=== PATIENT | female | born 1960 | race African-American/Black ===

== ENCOUNTER 2021-02-04 17:04 | Emergency (ER) | payer OTHER ==
[2021-02-04 17:22] VITALS: BMI 32.1
[2021-02-04] MEDS ORDERED: CASIRIVIMAB (REGN10933) 600 MG, IMDEVIMAB (REGN10987) 600 MG in SODIUM CHLORIDE 100 ML IVPB ONE (17:40)
[2021-02-04 18:52] LABS: BASO % 0.8 % (0-2.0); HEMATOCRIT 39.3 % (32.4-45.2); HEMOGLOBIN 13.2 GM/dL (10.7-15.3); LYMPH % 31.9 % (8-40); MCH 26.3 pg (25.7-33.7); MCHC 33.5 g/dl (32.0-36.0); MEAN CELL VOLUME 78.6 fl (80-96); MONO % 7.1 % (3.8-10.2); NEUT % 60.2 % (42.8-82.8); PLATELET COUNT 139 10^3/uL (134-434); RBC 5.01 M/mm3 (3.60-5.2); RDW 16.6 % (11.6-15.6); WHITE BLOOD COUNT 4.7 K/mm3 (4.0-10.0)
[2021-02-04 19:11] LABS: BLOOD UREA NITROGEN 14.4 mg/dL (7-18); CALCIUM 8.2 mg/dL (8.5-10.1)
[2021-02-04 19:13] LABS: ALBUMIN 3.5 g/dl (3.4-5.0)
[2021-02-04 19:16] LABS: BILIRUBIN,TOTAL 0.4 mg/dL (0.2-1)
[2021-02-04] MEDS ORDERED: KETOROLAC TROMETHAMINE 30 MG/1 ML VIAL ONE (20:33)
[2021-02-04] MEDS ORDERED: KETOROLAC TROMETHAMINE 30 MG/1 ML VIAL IVPUSH ONE (21:02)
[2021-02-04] MEDS ORDERED: ACETAMINOPHEN 500 MG TABLET (FP) PO ONE (21:16)
[2021-02-04 23:28] VITALS: TEMP 99.2
[2021-02-05 07:27] VITALS: BP 135/72; PULSE 62
== END 2021-02-04 23:32 | disposition home or self-care (01) ==
LOC: JCOVINFU 17:04 → JER 17:04
PROC: 3E03329 Introduction of Other Anti-infective into Peripheral Vein, Percutaneous Approach (ICD-10-PCS; principal; 2021-02-04)
PROC: 3E0333Z Introduction of Anti-inflammatory into Peripheral Vein, Percutaneous Approach (ICD-10-PCS; 2021-02-04)
DX: U07.1 COVID-19 (principal)
CPT/HCPCS: 36415; 80053; 85025; 99284-25; M0243; Q0243

== ENCOUNTER 2023-05-08 07:18 | Day surgery (SDC) | payer OTHER ==
[2023-05-07 12:10] VITALS: BMI 31.3
[2023-05-08] MEDS ORDERED: LIDOCAINE HCL/PF 2% SDV 5ML VIAL ONE (07:34)
[2023-05-08] MEDS ORDERED: PROPOFOL 120 ML ONE (07:34)
[2023-05-08 09:11] VITALS: RESP 20; TEMP 97
[2023-05-08 09:13] VITALS: BP 115/62; PULSE 52
== END 2023-05-08 09:14 | disposition home or self-care (01) ==
LOC: FASU-ENDO 07:18
PROVIDERS: ATTEND Internal Medicine Gastroenterology
PROC: 0DJD8ZZ Inspection of Lower Intestinal Tract, Via Natural or Artificial Opening Endoscopic (ICD-10-PCS; principal; 2023-05-08 08:07)
DX: Z12.11 Encounter for screening for malignant neoplasm of colon (principal)

== ENCOUNTER 2023-07-21 19:32 | Emergency (ER) | payer OTHER ==
[2023-07-21 19:41] VITALS: BP 167/83; PULSE 68; RESP 18; TEMP 98.3; BMI 31.3
[2023-07-21] MEDS ORDERED: METHOCARBAMOL 500 MG TABLET PO ONE (22:03)
[2023-07-21] MEDS ORDERED: KETOROLAC TROMETHAMINE 30 MG/1 ML VIAL IM ONE (22:03)
[2023-07-21] MEDS ORDERED: KETOROLAC TROMETHAMINE 30 MG/1 ML VIAL ONE (22:04)
[2023-07-21] MEDS ORDERED: METHOCARBAMOL 500 MG TABLET ONE (22:04)
== END 2023-07-22 01:19 | disposition home or self-care (01) ==
LOC: JER 19:32
PROC: 3E0233Z Introduction of Anti-inflammatory into Muscle, Percutaneous Approach (ICD-10-PCS; principal; 2023-07-21)
DX: M54.2 Cervicalgia (principal); M54.6 Pain in thoracic spine; M54.50 Low back pain, unspecified; R10.13 Epigastric pain; V43.52XA Car driver injured in collision with other type car in traffic accident, initial encounter; Y92.410 Unspecified street and highway as the place of occurrence of the external cause
CPT/HCPCS: 71046-TC-FY; 72050-TC-FY; 72070-TC-FY; 99284-25